=== PATIENT | male | born 1940 | race Caucasian/White ===

== ENCOUNTER 2018-05-23 13:32 | Outpatient (CLI) | payer MEDICARE, OTHER | END 2018-05-23 13:33 | disposition home or self-care (01) | LOC: BICRAD 13:32 | PROVIDERS: ATTEND Family Medicine | DX: S83.92XA Sprain of unspecified site of left knee, initial encounter (principal); M17.12 Unilateral primary osteoarthritis, left knee ==

== ENCOUNTER 2019-03-20 08:30 | Outpatient (CLI) | payer MEDICARE, OTHER ==
--- NOTE | 2019-03-20 09:25 | MRI ---
MR of the left knee without contrast INDICATION: Left knee pain TECHNIQUE: Axial and coronal PD fat sat, sagittal T2 fat sat, sagittal PD turbo spin echo and T1 marleny nal images were obtained of the left knee. COMPARISON: None INDICATION: Left knee sprain FINDINGS: Joint effusion: There is a mild-sized joint effusion. Semimembranosus-medial gastrocnemius popliteal cyst: There is a moderate sized cysts present. Ligaments: The ACL, PCL, MCL and LCLC are intact. Extensor mechanism: Intact. Menisci: There is a complex radial tear involving the posterior junction and posterior horn of the me dial meniscus with partial medial extrusion. Articular cartilage: There is mild diffuse chondrosis involving the medial femorotibial joint compart ment without evidence of a full-thickness defect. There is mild chondrosis involving the lower median patellar ridge and lateral patellar facet. No full-thickness defect is evident. Osseous structures: There are mild marginal osteophytes affecting the major compartments of the left knee. Popliteus and IT band: Normal. IMPRESSION: 1. Mild osteoarthrosis of the left knee. 2. Complex, predominantly radial oriented tear involving the posterior horn and posterior junction of the medial meniscus with partial medial extrusion. 3. Moderate-sized Chambers's cyst and mild joint effusion
== END 2019-03-20 08:31 | disposition home or self-care (01) ==
LOC: TBSIIMAG 08:30
PROVIDERS: ATTEND Specialist
DX: M25.562 Pain in left knee (principal); S83.232A Complex tear of medial meniscus, current injury, left knee, initial encounter; M17.12 Unilateral primary osteoarthritis, left knee; M25.462 Effusion, left knee; M71.22 Synovial cyst of popliteal space [Baker], left knee

== ENCOUNTER 2019-12-03 16:11 | Emergency (ER) | payer MEDICARE, OTHER ==
[2019-12-03] MEDS ORDERED: Morphine 4 MG/ML VIAL ONE (17:09)
[2019-12-03] MEDS ORDERED: Ketorolac Tromethamine 30 MG/ML VIAL ONE (17:09)
[2019-12-03] MEDS ORDERED: Dexamethasone 4 mg/ml Vial ONE (17:09)
[2019-12-03] MEDS ORDERED: Ondansetron ODT 4 MG TAB ONE ×2 (17:09→17:11)
== END 2019-12-03 18:11 | disposition home or self-care (01) ==
LOC: ERS 16:11
DX: M62.830 Muscle spasm of back (principal); I10 Essential (primary) hypertension; E78.5 Hyperlipidemia, unspecified; F17.220 Nicotine dependence, chewing tobacco, uncomplicated; Z79.82 Long term (current) use of aspirin; Z79.899 Other long term (current) drug therapy
CPT/HCPCS: 96372; 99283; J1100; J1885; J2270; Q0162

== ENCOUNTER 2019-12-18 09:43 | Outpatient (CLI) | payer MEDICARE, OTHER ==
--- NOTE | 2019-12-18 10:44 | MRI ---
MR the lumbar spine without contrast: 12/18/2019 History: Lumbar radiculopathy, back pain COMPARISON: 11/27/2015 TECHNIQUE: Multiplanar multisequence MR images were obtained of lumbar spine without IV contrast FINDINGS: On the basis of 5 lumbar type vertebral bodies, conus medullaris terminates at theL1 level. Sagittal STIR imaging demonstrates a focal area of new increased signal intensity involving the major ity of the central and inferior aspect of the T12 vertebral body suggesting nonspecific vertebral body marrow edema. There is linear subtle signal abnormality along the inferior endplate at T12 adjac ent to a Schmorl's node which may be on the basis of a mild inferior endplate fracture or acute inferior endplate Schmorl's node with resultant edema. T12-L1:There is disc space narrowing and disc desiccation with mild disc bulge and mild bilateral fac et hypertrophy. No significant central canal or neural foraminal stenosis is noted. L1-2:There is disc space narrowing with disc desiccation and disc bulge. There is a disc protrusion i n the right foraminal and post foraminal region. Mild bilateral facet hypertrophy. No significant central canal stenosis. Bilateral neural foraminal stenosis. L2-3:Mild bilateral facet hypertrophy. Disc space narrowing and disc desiccation with mild disc bulge . Mild central canal stenosis, similar when compared to prior imaging. Mild bilateral neural foraminal stenosis, left greater than right. L3-4:Bilateral facet hypertrophy and hypertrophy of the ligamentum flavum. Disc space narrowing with disc desiccation and mild disc osteophyte complex. Stable mild central canal stenosis. Bilateral facet hypertrophy is noted with mild right and moderate left neural foraminal stenosis, similar when compared to prior imaging. L4-5:Disc space narrowing and disc desiccation noted with disc bulge. Resultant mild stable central c anal stenosis. Significant bilateral facet hypertrophy. Moderate/severe bilateral neural foraminal stenosis, left greater than right, slightly worsened bilaterally when compared to the prior examinati on. L5-S1:Disc space narrowing with disc desiccation and disc osteophyte complex. Bilateral facet hypertr ophy. No significant central canal stenosis. Moderate/severe bilateral neural foraminal stenosis, left greater than right. Image retroperitoneal structures demonstrateincompletely assessed bilateral renal cysts. No acute ret roperitoneal abnormality. IMPRESSION: New increased STIR signal within the T12 vertebral body consistent with new marrow edema. This is fel t to most likely be on the basis of an inferior endplate fracture or acute Schmorl's node. Correlation with CT examination suggested. If CT examination does not explain this finding then a bon e scan would be advised to evaluate for neoplasia. CODE T Transcribed Date/Time: 12/18/2019 11:23 AM
== END 2019-12-18 09:44 | disposition home or self-care (01) ==
LOC: BICMRI 09:43
PROVIDERS: ATTEND Specialist
DX: M54.16 Radiculopathy, lumbar region (principal)
CPT/HCPCS: 72148

== ENCOUNTER 2020-01-01 10:23 | Outpatient (CLI) | payer MEDICARE, OTHER ==
--- NOTE | 2020-01-01 15:39 | NM ---
WHOLE BODY BONE SCAN: Date: 01/01/2020 HISTORY: Melanoma, prostate cancer, low back pain. CORRELATION: MRI lumbar spine of 12/18/2019. COMPARISON: None. RADIOPHARMACEUTICAL: 31.2 mCi technetium-99m MDP injected intravenously. FINDINGS: There is focally increased uptake in the vertebral body of T12, corresponding to the region of marrow edema on the MRI. Increased uptake in the shoulders and left knee are consistent with degenerative changes. No other ab normal areas of tracer localization seen. Tracer excretion through the kidneys is within normal limit s. IMPRESSION: Focally increased uptake at T12. Fracture vs. metastatic disease. POS: OFF
== END 2020-01-01 10:24 | disposition home or self-care (01) ==
LOC: NM 10:23
PROVIDERS: ATTEND Nurse Practitioner Family
DX: S22.089A Unspecified fracture of T11-T12 vertebra, initial encounter for closed fracture (principal)
CPT/HCPCS: 78306; A9503

== ENCOUNTER 2021-12-19 09:02 | Outpatient (CLI) | payer MEDICARE, OTHER | END 2021-12-19 09:03 | disposition home or self-care (01) | LOC: MRI 09:02 | PROVIDERS: ATTEND Specialist | DX: M47.26 Other spondylosis with radiculopathy, lumbar region (principal) | CPT/HCPCS: 72148 ==

== ENCOUNTER 2022-01-20 09:50 | Outpatient (CLI) | payer MEDICARE, OTHER | END 2022-01-20 09:51 | disposition home or self-care (01) | LOC: BICRAD 09:50 | PROVIDERS: ATTEND Specialist | DX: M47.26 Other spondylosis with radiculopathy, lumbar region (principal) | CPT/HCPCS: 72110 ==